=== PATIENT | female | born 1990 | race American Indian/Alaskan Native ===

== ENCOUNTER 2018-05-04 18:27 | Inpatient (IN) | payer OTHER ==
[2018-05-04] MEDS ORDERED: Albuterol-Ipratrop 3 mg / 0.5 (3 ml) UD IH STA (18:44)
[2018-05-04 18:46] VITALS: BMI 29.0
--- NOTE | 2018-05-04 18:48 | ED PDOC ---
Arrival/HPI - General Chief Complaint: Shortness Of Breath Time Seen by Provider: 05/04/18 18:29 Historian: Patient, EMS - History of Present Illness Time/Duration: Prior to Arrival Symptom Course: Unchanged Associated Symptoms (Text): 05/04/18 18:45 Patient presents to the emergency department [place] 911 and told EMS that there was someone short of breath and acting bizarrely. Patient is an extremely poor historian. She has tangential thought. There is a history of bipolar disorder, but she does report she takes no medications for it. She has never been seen at this hospital previously. She reports that she lives in [place] with her mother until the bus here tonight. She states that her asthma has been acting up just prior to arrival. She denies any chest pain. She reports a seizure history for which she is supposed to take Dilantin. She appears to be responding to internal stimuli. Pulse oximetry is 100% on room air. Past Medical History - Cardiac Hx Cardiac Disorders: No - Pulmonary Hx Respiratory Disorders: Yes Hx Asthma: Yes - Neurological Hx Neurological Disorder: Yes Hx Seizures: Yes - HEENT Hx HEENT Disorder: No - Renal Hx Renal Disorder: No - Endocrine/Metabolic Hx Endocrine Disorders: No - Hematological/Oncological Hx Blood Disorders: No - Integumentary Hx Dermatological Disorder: No - Musculoskeletal/Rheumatological Hx Musculoskeletal Disorders: No - Gastrointestinal Hx Gastrointestinal Disorders: No - Genitourinary/Gynecological Hx Genitourinary Disorders: No - Psychiatric Hx Psychophysiologic Disorder: Yes Hx Bipolar Disorder: Yes Hx Substance Use: No Family/Social History - Physician Review Nursing Documentation Reviewed: Yes Family/Social History: Unknown Family HX Smoking Status: Never Smoked Hx Alcohol Use: No Hx Substance Use: No Allergies/Home Meds Allergies/Adverse Reactions: Allergies No Known Allergies Allergy (Verified 05/04/18 18:37) Home Medications: Home Meds Medication Instructions Recorded Confirmed Unobtainable 05/04/18 05/04/18 Review of Systems - Physician Review All systems were reviewed & negative as marked: Yes - Review of Systems Constitutional: Fatigue. absent: Fevers Respiratory: SOB. absent: Cough, Sputum, Wheezing Cardiovascular: absent: Chest Pain, Palpitations, Syncope Gastrointestinal: absent: Abdominal Pain, Diarrhea, Vomiting Neurological: absent: Headache, Dizziness, Focal Weakness Physical Exam Vital Signs Temp Pulse Resp BP Pulse Ox 05/04/18 18:42 98.5 F 77 18 148/58 L 100 Temperature: Afebrile Blood Pressure: Normal Pulse: Regular Respiratory Rate: Normal Appearance: Positive for: Well-Appearing, Non-Toxic, Comfortable Pain Distress: None Mental Status: Positive for: Alert and Oriented X 3, other (Tangential thought and appears to be responding to internal stimuli.) - Systems Exam Head: Present: Atraumatic, Normocephalic Pupils: Present: PERRL Extroacular Muscles: Present: EOMI Conjunctiva: Present: Normal Mouth: Present: Moist Mucous Membranes Pharnyx: No: ERYTHEMA, EXUDATE, TONSILS ENLARGED Neck: Present: Normal Range of Motion Respiratory/Chest: Present: Good Air Exchange, Wheezes (trace bilateral wheezing ). No: Respiratory Distress, Accessory Muscle Use, Decreased Breath Sounds, Rales, Retracting, Rhonchi, Tachypneic, Tender to Palpation Cardiovascular: Present: Regular Rate and Rhythm, Normal S1, S2. No: Murmurs Abdomen: No: Tenderness, Distention, Peritoneal Signs, Rebound, Guarding Upper Extremity: Present: Normal Inspection. No: Cyanosis, Edema Lower Extremity: Present: Normal Inspection. No: Edema Neurological: Present: GCS=15, CN II-XII Intact, Speech Normal, Motor Func Grossly Intact Skin: Present: Warm, Dry, Normal Color. No: Rashes Psychiatric: Present: Anxious, Depressed Mood. No: Normal Insight, Normal Concentration, Normal Affect, Normal Mood, Agitated, Suicidal Ideation, Homicidal Ideation, Delusional, Intoxicated, Lethargic Medical Decision Making ED Course and Treatment: 05/04/18 19:57 EKG shows normal sinus rhythm with a sinus arrhythmia rate approximately 75 with nonspecific T-wave changes and no old available for comparison. 05/04/18 21:50 Seen and evaluated by crisis who will admit to the psychiatric floor on ' s service. - Lab Interpretations Lab Results: 05/04/18 20:06 05/04/18 20:06 Lab Results 05/04/18 21:18: Urine Opiates Screen Negative, Urine Methadone Screen Negative, Ur Barbiturates Screen Negative, Ur Phencyclidine Scrn Negative, Ur Amphetamines Screen Negative, U Benzodiazepines Scrn Negative, U Oth Cocaine Metabols Negative, U Cannabinoids Screen Negative 05/04/18 21:18: Urine Color Yellow, Urine Appearance Sl cloudy, Urine pH 6.0, Ur Specific [place] >= 1.030, Urine Protein Trace H, Urine Glucose (UA) Negative , Urine Ketones 40 H, Urine Blood Small H, Urine Nitrate Negative, Urine Bilirubin Small H, Urine Urobilinogen 0.2, Ur Leukocyte Esterase Trace H, Urine RBC 2 - 5, Urine WBC 5 - 10, Ur Epithelial Cells 4 - 5, Urine Bacteria Mod, Urine HCG, Qual Negative 05/04/18 20:06: Phenytoin < 3 L 05/04/18 20:06: Alcohol, Quantitative < 10 05/04/18 20:06: Salicylates < 1 L, Acetaminophen < 10.0 L 05/04/18 20:06: Sodium 145, Potassium 3.9, Chloride 108 H, Carbon Dioxide 29, Anion Gap 12, BUN 20, Creatinine 0.7, Est GFR ( Amer) > 60, Est GFR (Non- Af Amer) > 60, Random Glucose 87, Calcium 9.4, Magnesium 2.0, Total Bilirubin 0.3, AST 21, ALT 18, Alkaline Phosphatase 41, Total Creatine Kinase 95, Total Protein 8.3, Albumin 4.2, Globulin 4.1, Albumin/Globulin Ratio 1.0 L 05/04/18 20:06: WBC 10.2, RBC 4.79, Hgb 13.8, Hct 42.0, MCV 87.7, MCH 28.8, MCHC 32.9, RDW 14.3, Plt Count 160, MPV 11.1 H, Gran % 55.2, Lymph % (Auto) 34.4 , [place] % (Auto) 8.8 H, Eos % (Auto) 1.5, Baso % (Auto) 0.1, Gran # 5.61, Lymph # (Auto) 3.5 H, [place] # (Auto) 0.9 H, Eos # (Auto) 0.2, Baso # (Auto) 0.01 I have reviewed the lab results: Yes - Medication Orders Current Medication Orders: Discontinued Medications Albuterol/Ipratropium (Duoneb 3 Mg/0.5 Mg (3 Ml) Ud) 3 ml IH ONCE STA Stop: 05/04/18 18:45 Last Admin: 05/04/18 19:45 Dose: 3 ml Disposition/Present on Arrival - Present on Arrival Any Indicators Present on Arrival: No History of DVT/PE: No History of Uncontrolled Diabetes: No Urinary Catheter: No History of Decub. Ulcer: No History Surgical Site Infection Following: None - Disposition Have Diagnosis and Disposition been Completed?: Yes Diagnosis: Bipolar 1 disorder, Psychosis Disposition: HOSPITALIZED Disposition Time: 21:51 Patient Plan: Admission Condition: GOOD Forms: [employer] ([place]andan)
[2018-05-04 20:12] LABS: BASO # 0.01 K/mm3 (0.0-2.0); BASO % 0.1 % (0.0-3.0); EOS # 0.2 (0.0-0.7); EOS % 1.5 % (1.5-5.0); GRAN # 5.61 (1.4-6.5); GRAN % 55.2 % (50.0-68.0); HEMOGLOBIN 13.8 g/dL (12.0-16.0); LYMPH # 3.5 (1.2-3.4); LYMPH % 34.4 % (22.0-35.0); MEAN CELL VOLUME 87.7 fl (80.0-105.0); MEAN CORPUSCULAR HEMOGLOBIN 28.8 pg (25.0-35.0); MEAN CORPUSCULAR HGB CONC 32.9 g/dl (31.0-37.0); MEAN PLATELET VOLUME 11.1 fl (7.0-11.0); MONO # 0.9 (0.1-0.6); MONO % 8.8 % (1.0-6.0); RBC 4.79 10^6/uL (3.5-6.1); RED CELL DISTRIBUTION WIDTH 14.3 % (11.5-14.5); WHITE BLOOD COUNT 10.2 10^3/ul (4.5-11.0)
[2018-05-04 20:21] LABS: ACETAMINOPHEN < 10.0 ug/ml (10.0-20.0); SALICYLATE < 1 mg/dL (2.0-20.0)
[2018-05-04 20:22] LABS: ALBUMIN 4.2 g/dL (3.0-4.8); ALT/SGPT 18 U/L (7-56); AST/SGOT 21 U/L (14-36); BLOOD UREA NITROGEN 20 mg/dL (7-21); CALCIUM 9.4 mg/dL (8.4-10.5); GFR NON-AFRICAN AMERICAN > 60
[2018-05-04 21:24] LABS: URINE BILIRUBIN SMALL (NEGATIVE); URINE BLOOD SMALL (NEGATIVE); URINE GLUCOSE (UA) NEGATIVE (NEGATIVE); URINE LEUKOCYTE ESTERASE TRACE Leu/uL (NEGATIVE); URINE PROTEIN TRACE mg/dL (<30 mg/dL); URINE UROBILINOGEN 0.2 E.U./dL (<1 E.U./dL)
[2018-05-04 21:25] LABS: URINE APPEARANCE SL CLOUDY (CLEAR); URINE COLOR YELLOW (YELLOW)
[2018-05-04 21:42] LABS: BARBITURATES, UR NEGATIVE (NEGATIVE); BENZODIAZEPINES, UR NEGATIVE (NEGATIVE); OPIATES, UR NEGATIVE (NEGATIVE); PHENCYCLIDINE, UR NEGATIVE (NEGATIVE)
[2018-05-04 21:45] LABS: URINE BACTERIA MOD (NEG)
[2018-05-04 21:48] LABS: HCG,QUALITATIVE URINE NEGATIVE (NEGATIVE)
[2018-05-05] MEDS ORDERED: Alum-Mag Hydrox-Simethicone Susp (30 mL) PO PRN (00:20)
[2018-05-05] MEDS ORDERED: Magnesium Hydroxide Susp 30 ml UD PO PRN (00:20)
[2018-05-05 00:28] VITALS: O2SAT 99
--- NOTE | 2018-05-05 01:15 | PCM.BM ---
<Erin Keller - Last Filed: 05/05/18 01:13> Treatment Plan Problems - Problems identified on initial assessmt Altered Thought Process Date Initiated: 05/05/18 Time Initiated: 00:15 Assessment reference: NA Status: Active Priority: 1 Ineffective Impulse Control Date Initiated: 05/05/18 Time Initiated: 00:15 Assessment reference: NA Status: Active Priority: 2 Medication Nonadherence Date Initiated: 05/05/18 Time Initiated: 00:15 Assessment reference: NA Status: Active Priority: 3 Treatment assets and liabiliti Patient Assests: ADL independent Patient Liabilities: medical problems, language/speech - Milieu Protocol Maintain good personal hygiene: daily Encourage regular showers, daily Remind patient to perform daily oral care Conduct patient checks and document Observation sheet: Q15 minutes Maintain personal safety: every shift Educate patient to report safety concerns to staff, every shift Monitor environment for contraband/sharps Medication safety: Monitor for expected outcome, potential side effects: every shift, Assess barriers to learning: every shift, Assess readiness for medication education: every shift Discharge/Continuing Care - Education Needs Education Needs: Patient Medication, Patient Diagnosis/Disease Process, Patient Coping Skills, Patient Placement options, Patient Community resources, Patient Health Practices/Safety, Patient Personal Hygiene/Grooming - Discharge Discharge Criteria: Tolerates medication w/o severe side effects, Ability to care for self Discharge to:: Home <Shaunna Sánchez - Last Filed: 05/05/18 15:44> Family Contact Family involvement: Family/SO is involved Family contact: Patient agrees to contact - Outside Agency [facility] Care involvment: Following patient during stay, Information-sharing Agency contact name: [facility]
--- NOTE | 2018-05-05 09:12 | RAD ---
Date of service: 05/04/2018 HISTORY: psych clearance COMPARISON: No prior. FINDINGS: LUNGS: No active pulmonary disease. PLEURA: No significant pleural effusion identified, no pneumothorax apparent. CARDIOVASCULAR: Normal. OSSEOUS STRUCTURES: No significant abnormalities. VISUALIZED UPPER ABDOMEN: Mildly elevated left hemidiaphragm noted. OTHER FINDINGS: None. IMPRESSION: No acute infiltrate, pleural effusion or pneumothorax bilaterally. Mildly elevated left hemidiaphragm identified, etiology unclear. No acute cardiovascular changes.
--- NOTE | 2018-05-05 09:48 | CARD ---
APPROVED REPORT Date of service: 05/04/2018 EKG Measurement Heart [id number] <Conclusion> Normal sinus rhythm Nonspecific T wave abnormality Abnormal ECG
--- NOTE | 2018-05-05 16:52 | PCM.RRT ---
<Isaak Gant - Last Filed: 05/05/18 16:57> HYDROLOGIST Nurse Assessment - Situation Date: 05/05/18 HYDROLOGIST Location:: Psychiatry Unit Room Number: TV Raul HYDROLOGIST Reason for Call: Change in Mental Status HYDROLOGIST Called By: RN I.Reason for HYDROLOGIST - A) Acute Change in Patient: (Select all that apply): Acute change in mental status Plan - Assessment of Findings&Treatment Plan Isaak Gant- Internal Medicine Resident- House Doctor HYDROLOGIST Note Subjective: Rapid response called by RN in psychiatry unit for evaluation of sudden onset of altered mental status. Patient seen and examined in psychiatry unit. Patient found to be experiencing myoclonus in the upper extremities. Patient was awake however was not alert, did not respond to verbal/painful stimuli, and did not follow commands. After approximately 120 seconds the patient's myoclonus resolved and patient became more alert without acute pharmacological intervention. She was able to answer questions appropriately and follow commands. Admitted to being confused. Denied chest pain and SOB. Further ROS could not be ascertained at the time due to confusion Physical Examination: Head: Atraumatic Normocephalic Eyes: Pupils dilated, sluggish response to light bilaterally Mouth: Left lingua abrasion Heart: Tachycardic, +s1, +s2, no rubs, no gallops, no murmurs Lungs: Clear to ausculation bilaterally, no wheezing, no rhonchi, no rales Abdomen: soft, non-tender to palpation, no guarding, no rebound tenderness Extremities: no edema, cyanosis, clubbing Neuro: please see HPI Skin: warm, dry Assessment and Plan: Patient is a 28 year old female with a endorsed past medical history of seizures, asthma, and bipolar disorder who experienced seizure like activity while undergoing treatment in the psychiatry unit. Seizure - IV ativan and IM ativan verbally ordered however seizure resolved prior to administration - Blood glucose within normal limits - Vitals reviewed- hypertensive, tachycardic, normal respiratory rate, oxygen saturation 100% on RA - patient placed on monitor- rhythm reviewed- sinus tachycardia - patient transferred to emergency room under direct supervision of physician - patient case endorsed to emergency room physician, Dr. Antonio Patient seen, case discussed with, and plan approved by attending physician, Dr. Correa. <Ángel Correa - Last Filed: 05/06/18 06:31> HYDROLOGIST Nurse Assessment - Vital Signs Vital Sign: Rapid Response Vital Sign Blood Pressure 173/118 Pulse Rate 108 Respiratory Rate 20 Oxygen Saturation 100 Attending/Attestation - Attestation I have personally seen and examined this patient.: Yes I have fully participated in the care of the patient.: Yes I have reviewed all pertinent clinical information, including history, physical exam and plan: Yes Notes (Text): 05/05/18 HYDROLOGIST was called for seizure like activity while in 5B. Seizure stopped prior to administeration of ativan. Labs and chart reviewed. Pt sent to ER for CT head and further evaluation. Ángel Correa MD Hospitalist.
[2018-05-06] MEDS ORDERED: Albuterol-Ipratrop 3 mg / 0.5 (3 ml) UD IH PRN (09:53)
[2018-05-06] MEDS: Albuterol-Ipratrop 3 mg / 0.5 (3 ml) UD IH SCH ×4 (11:43→21:39)
[2018-05-06] MEDS ORDERED: Divalproex 500 mg DR(BID formulation) PO STA (17:19)
--- NOTE | 2018-05-06 22:05 | PN ---
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 Presently, however, she is receiving respiratory treatment, seems to be calm, although her left arm is tremulous. She denies any mood or thought disturbance and indicates that she is comfortable and at her baseline state. She indicates a desire to go home. Social Work is attempted to reach the patient's mother to get more background information. She attends a [facility] ([facility] We are waiting a Neurology consultation. She presently is being maintained on Ativan 1 mg b.i.d. and at bedtime, Risperdal 1 mg a.m. and at bedtime. Presumably, antiseizure medication will be introduced as soon as she is appropriately neurologically evaluated. Blood pressure presently 131/87, pulse 98, temperature 98.2, respiratory rate 20. Loc Rodriguez MD/ PhD
--- NOTE | 2018-05-06 23:26 | CP.PCM.CON ---
<SavitaPato Stacy - Last Filed: 05/08/18 09:20> History of Present Illness - History of Present Illness History of Present Illness: Medicine consult note: Savita PGY - 2 - IM Resident Reason for consult: HTN HPI: 28 year old female with pertinent history of bipolar and seizure activity presented to [facility] ED for bizarre behavior. On 05/05, [facility] was called for seizure activity, and patient was taken to the ED for evaluation; medical admission was deemed unnecessary and patient returned to the psychiatric floor. Medicine was consulted for elevated BP of 140/104, at 4P on 05/05. On interview, patient is a poor historian, but states that she has never been diagnosed with HTN. She denies any symptoms of HTNsive emergency such as headache, chest pain, shortness of breath, confusion, or limb pain. She does not take BP medications at home, but does have history of Asthma. Surgical Hx: Denies Medical Hx: Asthma, Bipolar Disorder, ?Seizure disorder Allergies: NKDA Social Hx: Denies tobacco, alcohol, illicits Home Meds: Reviewed, as per MAR Family Hx: Son without issues Past Patient History - Past Social History Smoking Status: Never Smoked - CARDIAC Hx Cardiac Disorders: No - PULMONARY Hx Respiratory Disorders: Yes Hx Asthma: Yes - NEUROLOGICAL Hx Neurological Disorder: Yes Hx Seizures: Yes - HEENT Hx HEENT Problems: No - RENAL Hx Chronic Kidney Disease: No - ENDOCRINE/METABOLIC Hx Endocrine Disorders: No - HEMATOLOGICAL/ONCOLOGICAL Hx Blood Disorders: No - INTEGUMENTARY Hx Dermatological Problems: No - MUSCULOSKELETAL/RHEUMATOLOGICAL Hx Musculoskeletal Disorders: No - GASTROINTESTINAL Hx Gastrointestinal Disorders: No - GENITOURINARY/GYNECOLOGICAL Hx Genitourinary Disorders: No - PSYCHIATRIC Hx Substance Use: No - SURGICAL HISTORY Hx Surgeries: No Meds Allergies/Adverse Reactions: Allergies Allergy/AdvReac Type Severity Reaction Status Date / Time No Known Allergies Allergy Verified 05/05/18 00:35 - Medications Medications: Current Medications Acetaminophen (Tylenol 325mg Tab) 650 mg PO Q4 PRN PRN Reason: Pain, moderate (4-7) Al Hydrox/Mg Hydrox/Simethicone (Maalox Plus 30 Ml) 30 ml PO DAILY PRN PRN Reason: Upset Stomach Albuterol/Ipratropium (Duoneb 3 Mg/0.5 Mg (3 Ml) Ud) 3 ml IH [id number] [facility] Last Admin: 05/06/18 21:39 Dose: 3 ml Albuterol/Ipratropium (Duoneb 3 Mg/0.5 Mg (3 Ml) Ud) 3 ml IH Q2H PRN PRN Reason: Shortness of Breath Divalproex Sodium (Depakote Dr(*Bid*)) 1,000 mg PO BID CATA Haloperidol (Haldol) 5 mg PO Q6 PRN; Protocol PRN Reason: Agitation Haloperidol Lactate (Haldol) 5 mg IM Q6 PRN PRN Reason: Severe Agitation Hydralazine HCl (Apresoline) 10 mg PO BID PRN PRN Reason: blood pressure sbp>200 dbp>90 Lorazepam (Ativan) 2 mg IM Q6 PRN PRN Reason: Severe Agitation Lorazepam (Ativan) 2 mg PO Q6 PRN; Protocol PRN Reason: Agitation Lorazepam (Ativan) 1 mg PO BID CATA PRN Reason: Protocol Last Admin: 05/06/18 16:23 Dose: 1 mg Lorazepam (Ativan) 1 mg PO HS CATA PRN Reason: Protocol Last Admin: 05/06/18 21:09 Dose: 1 mg Magnesium Hydroxide (Milk Of Magnesia) 30 ml PO DAILY PRN PRN Reason: Constipation Risperidone (Risperdal Tab) 1 mg PO AMHS [facility] PRN Reason: Protocol Last Admin: 05/06/18 21:09 Dose: 1 mg Zaleplon (Sonata) 10 mg PO HS PRN PRN Reason: Insomnia Last Admin: 05/06/18 21:57 Dose: 10 mg Physical Exam - Constitutional Appears: Non-toxic, No Acute Distress, Unkempt, Agitated - Head Exam Head Exam: ATRAUMATIC, NORMAL INSPECTION, NORMOCEPHALIC - Eye Exam Eye Exam: EOMI, Normal appearance, PERRL Pupil Exam: NORMAL ACCOMODATION, PERRL - ENT Exam ENT Exam: Mucous Membranes Moist, Normal Exam Additional comments: Tongue bite on left side - Neck Exam Neck exam: Positive for: Normal Inspection - Respiratory Exam Respiratory Exam: Clear to Auscultation Bilateral, NORMAL BREATHING PATTERN - Cardiovascular Exam Cardiovascular Exam: REGULAR RHYTHM - GI/Abdominal Exam GI & Abdominal Exam: Normal Bowel Sounds, Soft. absent: Tenderness - Extremities Exam Extremities exam: Positive for: normal inspection - Back Exam Back exam: NORMAL INSPECTION - Neurological Exam Neurological exam: Alert, CN II-XII Intact, Normal Gait, Oriented x3, Reflexes Normal - Psychiatric Exam Psychiatric exam: Normal Affect, Normal Mood - Skin Skin Exam: Dry, Intact, Normal Color, Warm Results - Vital Signs Recent Vital Signs: Last Vital Signs Temp 98.2 F 05/06/18 06:57 Pulse 98 H 05/06/18 15:38 Resp 20 05/06/18 06:57 BP 131/87 05/06/18 15:38 Pulse Ox 99 05/05/18 00:00 - Labs Result Diagrams: 05/04/18 20:06 05/04/18 20:06 Labs: Laboratory Results - last 24 hr 05/05/18 16:19 POC Glucose (mg/dL) 183 H Assessment & Plan - Assessment and Plan (Free Text) Assessment: 28 year old female for medical evaluation of HTN. Patient's BP has been normal with exception of an incidence of 148 systolic when she was first admitted, which was likely 2/2 agitation; and an incidence of 144/104 around the time of reported seizure, which was the likely etiology. Patient's bp has not entered range of HTNsive urgency and, in light of no signs or symptoms of end organ damage, this cannot be deemed HTNsive emergency. Given that the patient has had HTN on two separate occasions on two different days, the diagnosis of HTN could be made, but there were legitimate reasons for patient to be HTNsive on those occasions. As such, at this time, cannot make affirmative diagnosis of chronic HTN in this patient. Of note, patient's admission UA reflected trace LE. In light of recent seizure activity, possibility of developing UTI should be explored; patient is asymptomatic as of right now. Plan HTN, likely 2/2 agitation and seizure activity - Hydralazine PRN for now - Patient needs to follow up with primary care physician once acute psychiatric and neurologic issues resolved Positive Leuk Esterase on UA - Obtain another UA and U Cx - Hold off on ABx for now GI/DVT PPX - No GI PPx necessary - No Chemical or Mechanical PPx necessary, as per Maranda score <Ángel Correa - Last Filed: 05/08/18 19:33> Meds - Medications Medications: Current Medications Acetaminophen (Tylenol 325mg Tab) 650 mg PO Q4 PRN PRN Reason: Pain, moderate (4-7) Al Hydrox/Mg Hydrox/Simethicone (Maalox Plus 30 Ml) 30 ml PO DAILY PRN PRN Reason: Upset Stomach Albuterol/Ipratropium (Duoneb 3 Mg/0.5 Mg (3 Ml) Ud) 3 ml IH [id number] [facility] Last Admin: 05/08/18 14:50 Dose: 3 ml Albuterol/Ipratropium (Duoneb 3 Mg/0.5 Mg (3 Ml) Ud) 3 ml IH Q2H PRN PRN Reason: Shortness of Breath Divalproex Sodium (Depakote Dr(*Bid*)) 1,000 mg PO BID [facility] Last Admin: 05/08/18 17:54 Dose: 1,000 mg Haloperidol (Haldol) 5 mg PO Q6 PRN; Protocol PRN Reason: Agitation Haloperidol Lactate (Haldol) 5 mg IM Q6 PRN PRN Reason: Severe Agitation Hydralazine HCl (Apresoline) 10 mg PO BID PRN PRN Reason: blood pressure sbp>200 dbp>90 Last Admin: 05/08/18 18:11 Dose: 10 mg Lorazepam (Ativan) 2 mg IM Q6 PRN PRN Reason: Severe Agitation Lorazepam (Ativan) 2 mg PO Q6 PRN; Protocol PRN Reason: Agitation Lorazepam (Ativan) 1 mg PO BID CATA PRN Reason: Protocol Last Admin: 05/08/18 17:54 Dose: 1 mg Lorazepam (Ativan) 1 mg PO HS CATA PRN Reason: Protocol Last Admin: 05/07/18 21:35 Dose: 1 mg Magnesium Hydroxide (Milk Of Magnesia) 30 ml PO DAILY PRN PRN Reason: Constipation Risperidone (Risperdal Tab) 2 mg PO AMHS CATA PRN Reason: Protocol Last Admin: 05/08/18 09:09 Dose: 2 mg Zaleplon (Sonata) 10 mg PO HS PRN PRN Reason: Insomnia Last Admin: 05/07/18 21:37 Dose: 10 mg Results - Vital Signs Recent Vital Signs: Last Vital Signs Temp 97.7 F 05/08/18 07:12 Pulse 116 H 05/08/18 18:11 Resp 18 05/08/18 07:12 BP 152/104 H 05/08/18 18:11 Pulse Ox 99 05/05/18 00:00 - Labs Result Diagrams: 05/04/18 20:06 05/04/18 20:06 Attending/Attestation - Attestation I have personally seen and examined this patient.: Yes I have fully participated in the care of the patient.: Yes I have reviewed all pertinent clinical information: Yes Notes (Text): 28 year old female who is currently admitted under psychiatric unit. [facility] was called yesterday for seizure like activity. CT head was done; negative for acute findings. Patient was given keppra in ER. Now started on depakote by neurology. Patient also appears to have chronic tremor. She is on nebs for asthma. Ángel Correa MD Hospitalist.
[2018-05-07] MEDS: Albuterol-Ipratrop 3 mg / 0.5 (3 ml) UD IH SCH ×7 (00:04→23:38)
--- NOTE | 2018-05-07 05:58 | CP.PCM.CON ---
History of Present Illness - History of Present Illness History of Present Illness: 28 yr old woman who had a spell that was witnessed by psychiatry unit staff to be a staring spell followed by generalized tonic clonic seizure. She denies an an aura but says that she and her son both have epilepsy. Initially she was loaded with Keppra 1000 mg IV. PMH/PSH: asthma, bipolar disorder. FH/SH: has a son, no tobacco, no etoh. All: nkda. ON exam: Aaox3. PERRL. Cn 2-12 normal. Motor/sensory normal. +2 dtr ul and ll bl. Toes downgoing. NO clonus. Gait normal. Past Patient History - Past Social History Smoking Status: Never Smoked - CARDIAC Hx Cardiac Disorders: No - PULMONARY Hx Respiratory Disorders: Yes Hx Asthma: Yes - NEUROLOGICAL Hx Neurological Disorder: Yes Hx Seizures: Yes - HEENT Hx HEENT Problems: No - RENAL Hx Chronic Kidney Disease: No - ENDOCRINE/METABOLIC Hx Endocrine Disorders: No - HEMATOLOGICAL/ONCOLOGICAL Hx Blood Disorders: No - INTEGUMENTARY Hx Dermatological Problems: No - MUSCULOSKELETAL/RHEUMATOLOGICAL Hx Musculoskeletal Disorders: No - GASTROINTESTINAL Hx Gastrointestinal Disorders: No - GENITOURINARY/GYNECOLOGICAL Hx Genitourinary Disorders: No - PSYCHIATRIC Hx Substance Use: No - SURGICAL HISTORY Hx Surgeries: No Meds Allergies/Adverse Reactions: Allergies Allergy/AdvReac Type Severity Reaction Status Date / Time No Known Allergies Allergy Verified 05/05/18 00:35 - Medications Medications: Current Medications Acetaminophen (Tylenol 325mg Tab) 650 mg PO Q4 PRN PRN Reason: Pain, moderate (4-7) Al Hydrox/Mg Hydrox/Simethicone (Maalox Plus 30 Ml) 30 ml PO DAILY PRN PRN Reason: Upset Stomach Albuterol/Ipratropium (Duoneb 3 Mg/0.5 Mg (3 Ml) Ud) 3 ml IH [id number] CATA Last Admin: 05/07/18 04:01 Dose: Not Given Albuterol/Ipratropium (Duoneb 3 Mg/0.5 Mg (3 Ml) Ud) 3 ml IH Q2H PRN PRN Reason: Shortness of Breath Divalproex Sodium (Depakote Dr(*Bid*)) 1,000 mg PO BID [facility] Haloperidol (Haldol) 5 mg PO Q6 PRN; Protocol PRN Reason: Agitation Haloperidol Lactate (Haldol) 5 mg IM Q6 PRN PRN Reason: Severe Agitation Hydralazine HCl (Apresoline) 10 mg PO BID PRN PRN Reason: blood pressure sbp>200 dbp>90 Lorazepam (Ativan) 2 mg IM Q6 PRN PRN Reason: Severe Agitation Lorazepam (Ativan) 2 mg PO Q6 PRN; Protocol PRN Reason: Agitation Lorazepam (Ativan) 1 mg PO BID CATA PRN Reason: Protocol Last Admin: 05/06/18 16:23 Dose: 1 mg Lorazepam (Ativan) 1 mg PO HS CAAT PRN Reason: Protocol Last Admin: 05/06/18 21:09 Dose: 1 mg Magnesium Hydroxide (Milk Of Magnesia) 30 ml PO DAILY PRN PRN Reason: Constipation Risperidone (Risperdal Tab) 1 mg PO AMHS CATA PRN Reason: Protocol Last Admin: 05/06/18 21:09 Dose: 1 mg Zaleplon (Sonata) 10 mg PO HS PRN PRN Reason: Insomnia Last Admin: 05/06/18 21:57 Dose: 10 mg Results - Vital Signs Recent Vital Signs: Last Vital Signs Temp 98.2 F 05/06/18 06:57 Pulse 98 H 05/06/18 15:38 Resp 20 05/06/18 06:57 BP 131/87 05/06/18 15:38 Pulse Ox 99 05/05/18 00:00 - Labs Result Diagrams: 05/04/18 20:06 05/04/18 20:06 Assessment & Plan - Assessment and Plan (Free Text) Assessment: 28 yr old with known epilepsy and now breakthrough seizure. I recommend stopping keppra in light of psych history, and starting depakote at 1000 mg iv now and 500 mg bid. Thank you consulting neurology Dr. wu
[2018-05-07] MEDS: Divalproex 500 mg DR(BID formulation) PO SCH ×2 (08:40→16:07)
--- NOTE | 2018-05-07 08:49 | PCM.PYCHPN ---
Psychiatric Progress Note - Psychiatric Progress Note Patient seen today, length of contact: 30 min Problems Identified/Issues Discussed: I reviewed recent notes. Dr. Rodriguez's reports are still not available in the [facility] system for review. I met with patient at bedside. She is calm and guarded with me during my introduction. Patient appears preoccupied and oddly related. There is some latency and blocking when she responds to my questioning. In general she denies any new concerns. Specifically denies any depression, SI, HI, paranoia or AVH. I am not sure I believe her. Staff notes indicate there haven't been any behavioral issues and she has been visible in the community. However she doesn't interact with peers and her affect with me is blunt and paranoid. Patient denies any new concerns, discomfort or pain and indicates that she slept "okay". Diagnostic Results: r/o bipolar disorder with psychotic features r/o schizoaffective disorder r/o schizophrenia Medication Change: Yes (risperdal increased) Medical Record Reviewed: Yes Mental Status Examination - Homicidal Ideation Homicidal Ideation: No Goal/Treatment Plan - Goal/Treatment Plan Progress Toward Problem(s) and Goals/Treatment Plan: * c/w current tx and plan * Risperdal increased to 2 mg AMHS for disorganization/paranoia * Appreciate Dr. Hays's consultation on 05/07/18~28 yr old with known epilepsy and now breakthrough seizure. I recommend stopping keppra in light of psych history, and starting depakote at 1000 mg iv now and 500 mg bid. * Ordered VPA level * No new weekend labs thus far * Vitals reviewed and noted below: Selected Entries 05/06/18 05/06/18 06:57 15:38 Temperature 98.2 F Pulse Rate 61 98 H Respiratory 20 Rate Blood Pressure 120/79 131/87
[2018-05-08] MEDS: Albuterol-Ipratrop 3 mg / 0.5 (3 ml) UD IH SCH ×5 (04:05→21:10)
[2018-05-08 07:13] VITALS: TEMP 97.7
[2018-05-08] MEDS: Divalproex 500 mg DR(BID formulation) PO SCH ×2 (09:09→17:54)
--- NOTE | 2018-05-08 10:08 | PCM.PYCHPN ---
Psychiatric Progress Note - Psychiatric Progress Note Patient seen today, length of contact: 30 min Problems Identified/Issues Discussed: I reviewed recent notes including Dr. Rodriguez's progress note dated 05/06/18. I met with patient at bedside. She remains guarded, preoccupied and oddly related with me during my questioning. There is some latency and blocking when she responds to my questioning. In general she denies any new concerns. Specifically denies any depression, SI, HI, paranoia or AVH. I am not sure I believe her. Staff notes indicate there haven't been any behavioral issues and she has been visible in the community. However she doesn't interact with peers and her affect is blunt, bizarre and paranoid. Her roommate asked to sleep in the quiet room because she is uncomfortable around this patient. Patient denies any new concerns, discomfort or pain. She is tolerating recent increase in risperdal and denies any new side effects. Diagnostic Results: Schizophrenia Medication Change: Yes (risperdal increased) Medical Record Reviewed: Yes Mental Status Examination - Cognitive Function Orientation: Person, Place Attention: Poor Concentration: Poor Association: Loose Fund of Knowledge: Poor - Mood Mood: Neutral - Affect Affect: Blunted, Flat - Speech Speech: Soft - Formal Thought Process Formal Thought Process: Paranoia, Loosening of associations - Suicidal Ideation Suicidal Ideation: No - Homicidal Ideation Homicidal Ideation: No Goal/Treatment Plan - Goal/Treatment Plan Progress Toward Problem(s) and Goals/Treatment Plan: * c/w current tx and plan * Risperdal increased to 2 mg AMHS for disorganization/paranoia on 05/08/18 * Appreciate Dr. Hays's consultation on 05/07/18~28 yr old with known epilepsy and now breakthrough seizure. I recommend stopping keppra in light of psych history, and starting depakote at 1000 mg iv now and 500 mg bid. * New weekend lab noted below: 05/07/18 09:30 Valproic Acid 74 *depakote dose is 1000 mg po bid * Vitals reviewed and noted below: Selected Entries 05/08/18 07:12 Temperature 97.7 F Pulse Rate 71 Respiratory 18 Rate Blood Pressure 109/61
[2018-05-08 22:15] VITALS: RESP 20
[2018-05-09] MEDS: Albuterol-Ipratrop 3 mg / 0.5 (3 ml) UD IH SCH ×5 (00:15→16:11)
--- NOTE | 2018-05-09 08:32 | HP ---
HISTORY OF PRESENT ILLNESS: The patient is a 28-year-old single -[place] Citizen female who reports that she was admitted because she was having an asthma attack. HISTORY OF PRESENT ILLNESS: The patient reported that she had no prior psychiatric admissions, but that she had been involved with a "health society" and was asking to be discharged. She reported that she lives in [place]. She was observed to be tremulous and she indicated that she was feeling nervous or anxious, but denied feeling depressed and denied any hallucinatory experiences or paranoid ideation. She reported that she had been living with her mother who reportedly was healthy. She denied any other medical problems beyond her asthma, but later stated that she had been hospitalized previously because of a seizure disorder which started when she was "little". She could not recall the last seizure. She was disoriented to month, year or season and indicate our current president was Dave. She was able to recall the day of the week, but could not state the first vice president regulatory. She did indicate that she had been in special education when younger, but could not read or write She had not been working but had been attending the [facility] for anger management in [place] and indicated that she could get angry when she could not her way. She was able to say that she is being maintained on medication at [facility], which causes her to shake, but she was unable to recall what these medications were although they were for her seizure disorder. She denied being angry at this time of assessment and believe she was at her baseline state. She reported having a sister and a brother and is the oldest of her siblings. She indicated her parents are together. She denied ever having any significant relationships although later it came out she may have two children. She denied any substance use. She is being maintained on Ativan p.r.n., Haldol p.r.n. Risperdal 1 mg a.m. and at bedtime and Sonata p.r.n. A CBC and differential on admission was unremarkable. A drug screen was negative. Biochemical profile showed elevated glucose of 183. DIAGNOSES: 1. 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 2. Seizure disorder Loc Rodriguez MD/ PhD
[2018-05-09] MEDS: Divalproex 500 mg DR(BID formulation) PO SCH (10:11)
[2018-05-09 15:33] VITALS: BP 137/93; PULSE 120
--- NOTE | 2018-05-10 04:55 | DS ---
IDENTIFYING INFORMATION: The patient is a 28-year-old single female who reported that she was admitted because she was having an asthma attack. HISTORY OF PRESENT ILLNESS: The patient reported that she had no prior psychiatric admissions, but that she had been involved with a "health society" and was asking to be discharged. She reported that she lives with her mother in [place]. She was observed to be tremulous on the unit and indicated that she was feeling nervous or anxious, but denied feeling depressed and denied any hallucinatory experiences or paranoid ideation. She denies any other medical problems beyond her asthma, but later stated that she had been hospitalized previously because of the seizure disorder which started when she was "little" although she cannot recall when she last had the seizure. She was noted that initially to be disoriented to month, year, or season and indicated that our current president was Dave. She was able to recall the day of the week, but not state who the first vice president residential [employer] sales was. She was able to say that she had been in special education when younger, but could not read or write or provide details of her education. She had not been working, but had been attending the [facility] for anger management in [place], which she indicating that she could get angry when she could not get her way. She was able to say that she is being maintained on medication at [facility], which causes her to shake, but she was unable to recall what these medications were, although she stated they were for her seizure disorder. She denied being angry at this time of assessment and believe that she was at her baseline state. She reports having a sister and brother which she being the oldest of the siblings. She indicated that her parents are together. She denied ever having any significant relationships, although later there was an implication that she may have two children. She denied any history of substance abuse. Her initial diagnoses were developmental delay disorder, impulse control disorder, seizure disorder. The patient was considered to be blunt and somewhat paranoid. The patient has a known history of epilepsy and had a breakthrough seizure. She was stopped on the Keppra that she had been maintained on and started on Depakote by our neurologist, Dr. Saúl botello. CBC and differential was unremarkable. The urine drug screen was negative. Urinalysis showed trace proteins, more blood, 40 ketones, trace leukocyte esterase. A biochemical profile showed elevated glucose of 183. The patient was discharged on Ativan 1 mg b.i.d. and at bedtime, Depakote 1000 mg b.i.d., Risperdal 2 mg a.m. and at bedtime. The patient was referred back to her mother's home and that was to attend the partial program at [facility]. Upon discharge planning, mother expressed concern as this was the first revelation that her daughter had been hospitalized in [place] and she had filed a missing person's report. Her mother reported that the patient does not have any psychiatric history including hospitalizations. Her mother reported that she has been shaking for 2 weeks due to seizure medications and she complained to the program about these tremors. The patient's mother obtained custody of her since the patient was 9 months old with the biologic mother being unable to care for her as she was ill and subsequently when the patient was 10 years old. 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 Loc Rodriguez MD/ PhD
== END 2018-05-09 17:26 | disposition home or self-care (01) | DRG 430 ==
LOC: ED 18:27 → ERH 21:53 → PSYC 23:56 → UNDODISIN 05-05 17:51
PROVIDERS: ADMIT Psychiatry & Neurology Psychiatry; ATTEND Psychiatry & Neurology Addiction Medicine
DX: F31.9 Bipolar disorder, unspecified (principal); G40.409 Other generalized epilepsy and epileptic syndromes, not intractable, without status epilepticus; E72.11 Homocystinuria; F63.9 Impulse disorder, unspecified; I10 Essential (primary) hypertension; J45.909 Unspecified asthma, uncomplicated; F07.0 Personality change due to known physiological condition

== ENCOUNTER 2018-05-05 16:39 | Emergency (ER) | payer OTHER ==
[2018-05-05 16:39] VITALS: BMI 29.0
[2018-05-05 16:43] VITALS: RESP 18
[2018-05-05] MEDS ORDERED: levETIRAcetam 1,000 MG in Sodium Chloride 0.9% 100 ML IV ONE (16:45)
--- NOTE | 2018-05-05 16:49 | ED PDOC ---
Arrival/HPI - General Chief Complaint: Seizure Time Seen by Provider: 05/05/18 16:43 Historian: Patient, Other (psychiatric floor staff) - History of Present Illness Time/Duration: Prior to Arrival Symptom Onset: Sudden Symptom Course: Resolved Severity Level: Severe Activities at Onset: Rest Associated Symptoms (Text): 05/05/18 16:47 Patient is mentally challenged. She was admitted to the psychiatric floor yesterday for bipolar disorder. There is a history of seizures for which the patient is supposed to be taking Dilantin. She had a witnessed generalized tonic -clonic seizure on the psychiatric floor today and a rapid response was called and the patient was brought to the emergency department. She is currently postictal. There was no injury or trauma. No incontinence. No tongue biting. Past Medical History - Infectious Disease Hx of Infectious Diseases: None - Cardiac Hx Cardiac Disorders: No - Pulmonary Hx Respiratory Disorders: Yes Hx Asthma: Yes - Neurological Hx Neurological Disorder: Yes Hx Seizures: Yes - HEENT Hx HEENT Disorder: No - Renal Hx Renal Disorder: No - Endocrine/Metabolic Hx Endocrine Disorders: No - Hematological/Oncological Hx Blood Disorders: No - Integumentary Hx Dermatological Disorder: No - Musculoskeletal/Rheumatological Hx Musculoskeletal Disorders: No - Gastrointestinal Hx Gastrointestinal Disorders: No - Genitourinary/Gynecological Hx Genitourinary Disorders: No - Psychiatric Hx Psychophysiologic Disorder: Yes Hx Bipolar Disorder: Yes Hx Substance Use: No Family/Social History - Physician Review Nursing Documentation Reviewed: Yes Family/Social History: Unknown Family HX Smoking Status: Never Smoked Hx Alcohol Use: No Hx Substance Use: No Allergies/Home Meds Allergies/Adverse Reactions: Allergies No Known Allergies Allergy (Verified 05/05/18 00:35) Home Medications: Home Meds Medication Instructions Recorded Confirmed Unobtainable 05/04/18 05/05/18 Review of Systems - Review of Systems Systems not reviewed;Unavailable: Other (postictal) Physical Exam Vital Signs Temp Pulse Resp BP Pulse Ox 05/05/18 16:42 98.8 F 84 18 135/89 98 Temperature: Afebrile Blood Pressure: Normal Pulse: Regular Respiratory Rate: Normal Appearance: Positive for: Well-Appearing, Non-Toxic, Comfortable Pain Distress: None Mental Status: Positive for: Lethargic Finger Stick Blood Glucose: 236 - Systems Exam Head: Present: Atraumatic, Normocephalic Pupils: Present: PERRL Extroacular Muscles: Present: EOMI Conjunctiva: Present: Normal Mouth: Present: Moist Mucous Membranes Pharnyx: No: ERYTHEMA, EXUDATE, TONSILS ENLARGED Neck: Present: Normal Range of Motion Respiratory/Chest: Present: Clear to Auscultation, Good Air Exchange. No: Respiratory Distress, Accessory Muscle Use Cardiovascular: Present: Regular Rate and Rhythm, Normal S1, S2. No: Murmurs Abdomen: No: Tenderness, Distention, Peritoneal Signs Back: Present: Normal Inspection Upper Extremity: Present: Normal Inspection. No: Cyanosis, Edema Lower Extremity: Present: Normal Inspection. No: Edema Neurological: Present: GCS=15, CN II-XII Intact, Speech Normal, Motor Func Grossly Intact Skin: Present: Warm, Dry, Normal Color. No: Rashes Medical Decision Making ED Course and Treatment: 05/05/18 17:11 Discussed with psychiatric floor staff. Patient does need to be on the psychiatric floor. Since patient is now in an outpatient facility in the emergency department crisis has been called to reevaluate her for placement back on the psychiatric floor. Patient has known seizures and had a seizure today. Treatment with Keppra. Patients with seizure histories are frequently treated on the psychiatric floor and admitted there. This is no different, other than the seizure was witnessed while the patient was on the floor. She is stable for discharge home other than the psychiatric issues.She had a negative test yesterday. Negative workup yesterday. 05/05/18 17:56 Workup is unremarkable including blood work and CT scan. Evidence of prior craniotomy which could explain the seizure history. She will be seen by crisis for evaluation to be placed back on the psychiatric floor versus being discharged home, as this is a seizure in a patient with a seizure history without seizure medication. 05/05/18 18:34 Discussed in detail with , who agrees to accept the patient back on the psychiatric floor after she is reevaluated by the chisel worker and if crisis agrees that she still needs psychiatric treatment.. I feel that the patient still does need to be treated psychiatrically and it is appropriate for her to be readmitted to the psychiatric floor. 05/05/18 18:44 Seen and evaluated by crisis and patient will be readmitted to 's service. - Lab Interpretations Lab Results: 05/05/18 17:30 05/05/18 17:30 Lab Results 05/05/18 17:30: Sodium 137, Potassium 3.8, Chloride 105, Carbon Dioxide 24, Anion Gap 13, BUN 14, Creatinine 0.5 L, Est GFR ( Amer) > 60, Est GFR ( Non-Af Amer) > 60, Random Glucose 148 H, Calcium 8.6, Magnesium 1.8, Total Bilirubin 0.2, AST 16, ALT 22, Alkaline Phosphatase 39, Total Protein 7.1, Albumin 3.5, Globulin 3.5, Albumin/Globulin Ratio 1.0 L 05/05/18 17:30: WBC 7.1 D, RBC 4.90, Hgb 14.1, Hct 42.7, MCV 87.1, MCH 28.8, MCHC 33.0, RDW 14.0, Plt Count 138, MPV 11.2 H, Gran % 52.3, Lymph % (Auto) 37.6 H, [place] % (Auto) 6.8 H, Eos % (Auto) 3.2, Baso % (Auto) 0.1, Gran # 3.72, Lymph # (Auto) 2.7, [place] # (Auto) 0.5, Eos # (Auto) 0.2, Baso # (Auto) 0.01 05/05/18 16:41: POC Glucose (mg/dL) 236 H - RAD Interpretation Radiology Orders: 05/05/18 16:45 HEAD W/O CONTRAST [CT] Stat CT scan of the head as read by the radiologist shows no acute findings. There is evidence of prior craniotomy. Social Work Coordinator: Radiologist - Medication Orders Current Medication Orders: Discontinued Medications Levetiracetam 1,000 mg/ Sodium (Chloride) 110 mls @ 440 mls/hr IV ONCE ONE Stop: 05/05/18 16:59 Last Admin: 05/05/18 17:50 Dose: 440 mls/hr eMAR Start Stop Document 05/05/18 17:50 GMD (Rec: 05/05/18 17:50 GMD [facility] [id number] Intravenous Solution Start Date 05/05/18 Start Time 17:50 End Date 05/05/18 End time 18:05 Total Infusion Time 15 Disposition/Present on Arrival - Present on Arrival Any Indicators Present on Arrival: No History of DVT/PE: No History of Uncontrolled Diabetes: No Urinary Catheter: No History of Decub. Ulcer: No History Surgical Site Infection Following: None - Disposition Have Diagnosis and Disposition been Completed?: Yes Diagnosis: Psychosis, Bipolar 1 disorder, Seizure Disposition: HOSPITALIZED Disposition Time: 18:44 Patient Plan: Admission Condition: FAIR Forms: [employer] ([place])
[2018-05-05 17:40] LABS: BASO # 0.01 K/mm3 (0.0-2.0); BASO % 0.1 % (0.0-3.0); EOS # 0.2 (0.0-0.7); EOS % 3.2 % (1.5-5.0); GRAN # 3.72 (1.4-6.5); GRAN % 52.3 % (50.0-68.0); HEMOGLOBIN 14.1 g/dL (12.0-16.0); LYMPH # 2.7 (1.2-3.4); LYMPH % 37.6 % (22.0-35.0); MEAN CELL VOLUME 87.1 fl (80.0-105.0); MEAN CORPUSCULAR HEMOGLOBIN 28.8 pg (25.0-35.0); MEAN PLATELET VOLUME 11.2 fl (7.0-11.0); MONO # 0.5 (0.1-0.6); MONO % 6.8 % (1.0-6.0); RBC 4.9 10^6/uL (3.5-6.1); WHITE BLOOD COUNT 7.1 10^3/ul (4.5-11.0)
--- NOTE | 2018-05-05 17:52 | CT ---
Date of service: 05/05/2018 PROCEDURE: CT HEAD WITHOUT CONTRAST. HISTORY: seizure COMPARISON: None available. TECHNIQUE: Axial computed tomography images were obtained through the head/brain without intravenous contrast. Radiation dose: Total exam DLP = 854.94 mGy-cm. This CT exam was performed using one or more of the following dose reduction techniques: Automated exposure control, adjustment of the mA and/or kV according to patient size, and/or use of iterative reconstruction technique. FINDINGS: Streak artifact obscures evaluation of the skullbase. HEMORRHAGE: No intracranial hemorrhage. BRAIN: No mass effect or edema. No atrophy or chronic microvascular ischemic changes.Please note that MRI with diffusion imaging is more sensitive in the detection of acute ischemic event. VENTRICLES: No hydrocephalus. CALVARIUM: Unremarkable. PARANASAL SINUSES: Unremarkable as visualized. No significant inflammatory changes. MASTOID AIR CELLS: Unremarkable as visualized. No inflammatory changes. OTHER FINDINGS: Irregularity of the right globe contour. Additionally, there is posterior radiopaque material involving the right globe consistent with prior operative change. IMPRESSION: No acute intracranial pathology identified. Irregularity of the right globe contour. Additionally, there is posterior radiopaque material involving the right globe consistent with prior operative change ; correlate with clinical history.
[2018-05-05 17:53] LABS: ALBUMIN 3.5 g/dL (3.0-4.8); ALT/SGPT 22 U/L (7-56); AST/SGOT 16 U/L (14-36); BLOOD UREA NITROGEN 14 mg/dL (7-21); CALCIUM 8.6 mg/dL (8.4-10.5); GFR NON-AFRICAN AMERICAN > 60
[2018-05-05 19:50] VITALS: BP 125/80; PULSE 65; TEMP 97.8; O2SAT 96
== END 2018-05-05 20:06 | disposition short-term general hospital (02) ==
LOC: ED 16:39
DX: F31.9 Bipolar disorder, unspecified (principal); F29 Unspecified psychosis not due to a substance or known physiological condition; R56.9 Unspecified convulsions
CPT/HCPCS: 70450; 80053; 82948; 83735; 85025; 90791; 96374; 99285; J1953